=== PATIENT | male | born 1995 | race Caucasian/White ===

== ENCOUNTER 2025-03-01 18:56 | Emergency (ER) | payer BC, SELFPAY ==
[2025-03-01 18:59] VITALS: BMI 30.1
[2025-03-01 19:14] VITALS: BP 141/86; PULSE 71; RESP 18; TEMP 37.1; O2SAT 98
--- NOTE | 2025-03-01 19:18 | XR_ITS ---
Examination: PA chest single view TECHNIQUE: Upright PA chest single view Exam date and time: March 01, 2025 at 1930 hours INDICATIONS: Chest tightness today FINDINGS: Normal heart size No lobar pneumonia or pulmonary edema The osseous structures are intact IMPRESSION: No lobar pneumonia or pulmonary edema
--- NOTE | 2025-03-01 19:18 | EKG_ITS ---
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
--- NOTE | 2025-03-01 19:19 | PD.EDRME ---
Rapid Medical Screening Exam RME Arrival date/time: 03/01/25 18:56 Chief Complaint: Anxiety Time Seen by Provider: 03/01/25 19:16 Vital signs: Vital Signs Temperature 98.8 F 03/01/25 19:14 Pulse Rate 71 03/01/25 19:14 Respiratory Rate 18 03/01/25 19:14 Blood Pressure 141/86 H 03/01/25 19:14 Pulse Oximetry (%) 98 03/01/25 19:14 Oxygen Delivery Method Room Air 03/01/25 19:14 RME Narrative: Mid to left-sided chest tightness radiating to left shoulder and neck since 1600
[2025-03-01 19:39] LABS: Basophils # (Auto) 0.1 Thou/mm3 (0.0-0.2); Basophils % (Auto) 1 % (0-2.5); Eosinophils # (Auto) 0.3 Thou/mm3 (0.0-0.5); Eosinophils % (Auto) 3 % (0-10); Hematocrit 40.7 % (41.0-53.0); Hemoglobin 13.6 g/dL (13.5-16.0); Immature Granulocytes % (Auto) 0 % (0-0); Immature Granulocytes Auto 0.02 Thou/mm3 (0.00-0.00); Lymphocytes # (Auto) 4.5 Thou/mm3 (1.0-4.8); Lymphocytes % (Auto) 45 % (10-50); Mean Corpuscular HGB Conc 33.4 g/dl (31.0-37.0); Mean Corpuscular Hemoglobin 29.2 pg (25.0-35.0); Mean Corpuscular Volume 88 fL (80-100); Monocytes # (Auto) 0.6 Thou/mm3 (0.0-0.8); Monocytes % (Auto) 6 % (0-12); Neutrophils # (Auto) 4.6 Thou/mm3 (1.8-7.7); Neutrophils % (Auto) 46 % (37-80); Nucleated Red Blood Cell # 0.02 Thou/mm3 (0.00-0.00); Nucleated Red Blood Cell % 0 /100 WBC (0); Platelet Count 384 Thou/mm3 (140-440); RDW Standard Deviation 41.4 fL (35.1-43.9); Red Blood Count 4.65 Miln/mm3 (4.50-5.90)
[2025-03-01 19:58] LABS: B-Type Natriuretic Peptide < 20 pg/mL (0-100)
[2025-03-01 20:00] LABS: Alanine Aminotransferase 15 U/L (10-49); Albumin, Serum 4.9 gm/dL (3.5-5.0); Albumin/Globulin Ratio 1.6 (1.2-2.2); Alkaline Phosphatase 60 U/L (46-116); Anion Gap 7 (7-16); Aspartate Amino Transferase 17 U/L (0-34); BUN/Creatinine Ratio 8 Ratio (12-20); Bilirubin,Total 0.4 mg/dL (0.3-1.2); Blood Urea Nitrogen 9 mg/dL (9-23); Calcium 9.4 mg/dL (8.3-10.6); Calcium (Corrected) 9.4 mg/dL (8.5-10.1); Carbon Dioxide 27.6 mMol/L (20.0-31.0); Chloride 101 mMol/L (98-107); Creatinine (Component) 1.2 mg/dL (0.6-1.3); Glucose 86 mg/dL (74-106); Osmolality,Calculated 269 (275-295); Potassium 3.8 mMol/L (3.4-5.1); Sodium 136 mMol/L (136-145); Total Protein 7.9 gm/dL (5.7-8.2); Troponin I < 0.002 ng/mL (0.0-0.045); eGFR > 60 See Note
[2025-03-01 21:26] LABS: Collection Type, Urine Clean Catch; Squamous Epithelial Cell,Urine 0 /hpf (0-5)
[2025-03-01 21:32] LABS: Bilirubin,Urine Negative (Negative); Blood,Urine Negative (Negative); Clarity,Urine Clear (Clear/Hazy); Color,Urine Yellow (Lt Yel-Yel); Glucose, Urine Negative (Negative); Ketones,Urine Negative (Negative); Leukocyte Esterase,Urine Negative (Negative); Nitrite,Urine Negative (Negative); Protein,Urine Negative (Neg - Trace); RBC,Urine 2 /hpf (0-3); Specific Gravity,Urine 1.021 (1.001-1.035); Urobilinogen,Urine Negative mg/dL (0.0-1.0); WBC,Urine 2 /hpf (0-5)
[2025-03-01 21:43] LABS: Alcohol, Urine Negative (Negative); Amphetamine/Methamp Scrn,U Negative (Negative); Barbiturate Screen,Urine Negative (Negative); Benzodiazepines Screen,Urine Negative (Negative); Benzoylecgonine Screen, Ur Negative (Negative); Fentanyl Screen,Urine Negative (Negative); Opiate Screen,Urine Negative (Negative); THC Screen,Urine Negative (Negative)
--- NOTE | 2025-03-01 22:09 | EDNOTE_ITS ---
ED General RME/HPI General Chief complaint: Anxiety Stated complaint: THROAT PAIN, CHEST PAIN, ANXIETY X3 HRS Time Seen by Provider: 03/01/25 19:16 Arrival date/time: 03/01/25 18:56 Left shoulder pain with radiation down the left anterior chest onset at 4 PM, lasting till about 6:30 PM, currently there is absent of all pain. Patient denies any shortness of breath difficulty breathing headache nausea vomiting or diarrhea. RME / HPI RME / HPI narrative: Mid to left-sided chest tightness radiating to left shoulder and neck since 1599 Related Data Allergies Allergy/AdvReac Type Severity Reaction Status Date / Time No Known Allergies Allergy Verified 03/01/25 18:59 Review of Systems Review of Systems Narrative Review of Systems: GEN: No fever, no chills, no weight loss EYES: No discharge, no visual changes, no pain HEENT: No ear pain, no congestion, no sore throat PULM: No shortness of breath, no cough, no congestion CV: + chest pain, no dyspnea on exertion, no palpitations GI: No nausea, no vomiting, no diarrhea, no pain, no constipation : No frequency, no urgency, no dysuria MUSC/SKEL: No joint pain, no back pain SKIN: No rash PSYCH: No hallucinations, no depression HEME/LYMPH: No easy bleeding or bruising tendencies NEURO: No weakness, no headache Past Medical History Social History SMOKING STATUS: Current every day smoker ED Exam Narrative Physical exam: [General: Not in any acute distress Head normocephalic HEENT: Eyes pupils are PERRLA EOMs are intact mouth pink moist membranes uvula is midline swallow symmetrical phonation is normal case even the bad dentition both upper and lower mandible with multiple teeth eroded to the gumline. All other subsystems of HEENT are within acceptable limits Neck is supple nontender no JVD no edema Chest equal chest rise nontender to palpation Respiratory: Clear to auscultation no wheezes crackles or rubs CV: Rate rhythm is regular no murmurs rubs or clicks Abdomen is soft nontender no masses positive bowel sounds all 4 quadrants Back: No CVA tenderness no spinous process tenderness from cervical spine thoracic and lumbar spine Skin: Intact no petechiae rash induration ulceration or crepitus Extremities: Moving all extremity against resistance cap refill less than 2 seconds neurosensory intact Neuro: Awake alert oriented x3 Glascow coma 15 no focal deficits] Course Quality Measures none Orders Category Date Time Status EKG (ED ONLY) *Do not use* NOW Care 03/01/25 19:19 Completed CXR [XR chest 1V] Stat Exams 03/01/25 19:18 Completed EKG (ED Only) Stat Exams 03/01/25 19:18 Draft Alcohol, Urine Stat Lab 03/01/25 20:56 Completed BNP [B-Type Natriuretic Peptide] Stat Lab 03/01/25 19:30 Completed CBC Stat Lab 03/01/25 19:30 Completed CMP [Comprehensive Metabolic Panel] Stat Lab 03/01/25 19:30 Completed Drug Screen,Urine Stat Lab 03/01/25 20:56 Completed Troponin I Stat Lab 03/01/25 19:30 Completed UA [Urinalysis] Stat Lab 03/01/25 20:56 Completed Vital Signs Vital signs: Vital Signs Temperature 98.8 F 03/01/25 19:14 Pulse Rate 71 03/01/25 19:14 Respiratory Rate 18 03/01/25 19:14 Blood Pressure 141/86 H 03/01/25 19:14 Pulse Oximetry (%) 98 03/01/25 19:14 Oxygen Delivery Method Room Air 03/01/25 19:14 Discharge Plan Plan Patient Disposition: HOME (Self Care) Patient condition on transfer: Stable Prescriptions/Referrals Referrals: Ariel Lee MD [Physician] - In 1 week No Primary/Family,Physician [Primary Care Provider] - In 1 week Problem List Clinical Impression: Chest pain Patient/Caregiver Discharge Instructions Education Materials: ED Chest Pain, Uncertain Cause Print Language: Welsh Stand Alone Forms: [employer] Award Info., Work/School Release, Patient Portal Info Letter PA/NATURAL RESOURCE TECHNICIAN Supervising Physician PA/NATURAL RESOURCE TECHNICIAN Supervising Physician: Jayy Nichols ENP MDM Patient Acuity Low Acuity (complete MDM as needed) Clinical Information Provided by: patient Medical Records reviewed [facility] EKG EKG Interpretation(s): EKG performed 1922 shows a ventricular rate of 63 NM interval 158 QRS of 9 7 QTc of 366 normal sinus rhythm. Labs Lab(s) Interpretation(s): CBC shows no acute leukocytosis anemia thrombocytopenia CMP shows no electrolyte imbalances renal impairment transaminitis or T. bili elevation. Troponin is negative BNP is negative Urine is negative UDS is negative Imaging Imaging Interpretation(s): Chest x-ray interpreted by me read by radiology are negative. Diagnosis Differential Diagnosis ED Complaint MDM: ACS HI pneumonia somatizations
[2025-03-01 22:36] VITALS: RESP 16
== END 2025-03-01 22:37 | disposition home or self-care (01) ==
PROVIDERS: Physician Assistant; Emergency Provider Emergency Medicine
DX: R07.89 Other chest pain (principal)
CPT/HCPCS: 36415; 71045; 80053; 80307; 80320; 81001; 83880; 84484; 85025; 93005; 99283; G0480